=== PATIENT | female | born 1975 | race Caucasian/White ===

== ENCOUNTER 2023-05-10 12:29 | Outpatient (CLI) | payer BC ==
[~2023-05-10] VITALS: Ht 157.5 cm; Wt 102.6 kg
[2023-05-10] MEDS ORDERED: FLUT9.9S NS (12:59)
[2023-05-10] MEDS ORDERED: CETI10CA PO (12:59)
== END 2023-05-10 13:01 | disposition home or self-care (01) ==
LOC: PREOP 12:29
PROVIDERS: ATTEND Surgery
DX: Z01.818 Encounter for other preprocedural examination (principal)

== ENCOUNTER 2023-05-17 11:41 | Day surgery (SDC) | payer BC ==
[~2023-05-17] VITALS: Ht 102 cm; Wt 102.6 kg
[~2023-05-17 11:41] MED LIST: CETI10CA PO; FLUT9.9S NS
[2023-05-17] MEDS ORDERED: LACTATED RINGERS 1,000 ML IV STA (11:58)
[2023-05-17 12:15] VITALS: BP 144/99
--- NOTE | 2023-05-17 14:28 | Progress Note-Pre Operative ---
Pre-Operative Progress Note Date H&P Reviewed: May 17, 2023 Time H&P Reviewed: 14:27 History & Physical: H&P Reviewed, Patient Examed, No changes noted Pre-Operative Diagnosis: screening colonoscopy SANTIAGO PATRICK DO May 17, 2023 14:28
[2023-05-17] MEDS ORDERED: PROPOFOL INJECTION 50 ML IV ONE (15:02)
[2023-05-17 15:20] VITALS: BP 129/78
--- NOTE | 2023-05-17 15:21 | Discharge Inst-Simple/Standard ---
Discharge Inst-Standard Patient Instructions/Follow Up Plan of Care/Instructions/FU: Franck 10 years for repeat colonoscopy unless family history of colon cancer which would be 5 years. Any issues before that be seen at that time. Activity as Tolerated: Yes Discharge Diet: Regular Diet SANTIAGO PATRICK DO May 17, 2023 15:21
--- NOTE | 2023-05-17 15:22 | Progress Note-Post Operative ---
Post-Operative Progess Note Surgeon (s)/Forensic Engineer (s) Surgeon SANTIAGO PATRICK DO Forensic Engineer: na Pre-Operative Diagnosis screening colonoscopy Post-Operative Diagnosis normal colon Procedure & Operative Findings Date of Procedure 05/17/23 Procedure Performed/Findings colonoscopy Anesthesia Type per [facility] Estimated Blood Loss Estimated blood loss (mL): none Specimens/Packing Specimens Removed na SANTIAGO PATRICK DO May 17, 2023 15:21
--- NOTE | 2023-05-17 15:24 | Anesthesia-General Post-Op ---
MAC Patient Condition Mental Status/LOC: Same as Preop Cardiovascular: Satisfactory Nausea/Vomiting: Absent Respiratory: Satisfactory Pain: Controlled Complications: Absent Post Op Complications Complications None Follow Up Care/Instructions Patient Instructions None needed. Anesthesiology Discharge Order Discharge Order Patient is doing well, no complaints, stable vital signs, no apparent adverse anesthesia problems. No complications reported per nursing. SHAYNE CARLOS DO May 17, 2023 15:24
[2023-05-17 15:45] VITALS: BP 129/78
--- NOTE | 2023-05-18 00:38 | OPERATIVE REPORT ---
DATE OF SERVICE: 05/17/2023 PREOPERATIVE DIAGNOSIS: Screening colonoscopy. POSTOPERATIVE DIAGNOSIS: Normal colon. PROCEDURE: Colonoscopy. SURGEON: Santiago Juárez DO ANESTHESIA: Per [ ]. ESTIMATED BLOOD LOSS: None. COMPLICATIONS: None. INDICATIONS: The patient is a 47-year-old female, needing screening colonoscopy. She understands risks and benefits of procedure and wished to proceed. Consent was signed in chart. DESCRIPTION OF PROCEDURE: The patient was taken to endoscopy suite, placed in left lateral recumbent position. Timeout was performed. Digital rectal exam was performed. No palpable polyps, masses or ulcerations. Scope was inserted in the rectum and advanced all the way to the cecum with minimal difficulty. Prep was adequate. Scope was slowly retracted back. No polyps, masses or ulcerations in the cecum, ascending, transverse, descending and sigmoid colon. Once in the rectum, scope was retroflexed noting no other pathology. Scope was returned to its normal position, slowly withdrawn until completely removed. The patient tolerated the procedure well, no complications, taken to recovery room in stable condition. RECOMMENDATIONS: The patient will have repeat colonoscopy in 10 years unless family history of colon cancer, which then will be 5 years. Any issues before that, be seen at that time. Job ID: [id number] DocumentID: [id number] Dictated Date: 05/17/2023 22:35:01 Methods Examiner Date: 05/18/2023 00:35:00 Dictated By: SANTIAGO JUÁREZ DO
== END 2023-05-17 15:45 | disposition home or self-care (01) ==
LOC: ENDO 11:41
PROVIDERS: ATTEND Surgery
DX: Z12.11 Encounter for screening for malignant neoplasm of colon (principal); K40.90 Unilateral inguinal hernia, without obstruction or gangrene, not specified as recurrent; E66.9 Obesity, unspecified; Z87.891 Personal history of nicotine dependence; Z68.41 Body mass index [BMI] 40.0-44.9, adult

== ENCOUNTER 2023-06-18 05:27 | Outpatient (CLI) | payer BC ==
[~2023-06-18] VITALS: Ht 157.5 cm; Wt 100.5 kg
[2023-06-18 08:51] VITALS: BP 138/86
[2023-06-18] MEDS ORDERED: MULT400T5 PO (12:54)
== END 2023-06-18 13:36 | disposition home or self-care (01) ==
LOC: PREOP 05:27
PROVIDERS: ATTEND Obstetrics & Gynecology
DX: Z01.818 Encounter for other preprocedural examination (principal)

== ENCOUNTER 2023-06-25 06:57 | Inpatient (IN) | payer BC ==
[~2023-06-25] VITALS: Ht 157.5 cm; Wt 100.5 kg
[2023-06-25] VITALS (24 sets, daily range): BP systolic 106–177; BP diastolic 73–93
[~2023-06-25 06:57] MED LIST changes: +MULT400T5 PO
[2023-06-25] MEDS ORDERED: fentaNYL INJECTION 100 MCG/2 ML VIAL ONE (07:03)
[2023-06-25] MEDS ORDERED: MIDAZOLAM INJ 2 MG/2 ML VIAL ONE (07:03)
--- NOTE | 2023-06-25 07:11 | Progress Note-Pre Operative ---
Pre-Operative Progress Note Date H&P Reviewed: Jun 25, 2023 Time H&P Reviewed: 07:05 History & Physical: H&P Reviewed, No changes noted Pre-Operative Diagnosis: AUB Uterine Fibroids Plan for TLH possible BSO MAYCO GONZALEZ DO Jun 25, 2023 07:11
[2023-06-25] MEDS ORDERED: ceFAZolin INJECTION 1,000 MG in NS (IVPB) 50 ML 50 ML IV ONE (07:15)
[2023-06-25] MEDS: LACTATED RINGERS 1,000 ML IV PRN ×5 (07:31→12:20)
[2023-06-25] MEDS ORDERED: BUPIVACAINE 0.25% 30 ML VIAL ONE (07:52)
[2023-06-25 07:56] LABS: BASOPHILS % (AUTO) 1 % (0-10); EOSINOPHILS # (AUTO) 0.3 10^3/uL (0.0-0.3); EOSINOPHILS % (AUTO) 5 % (0-10); HEMATOCRIT 37 % (35-52); HEMOGLOBIN 11.3 g/dL (11.5-16.0); LYMPHOCYTES # (AUTO) 1.2 10^3/uL (1.0-4.0); LYMPHOCYTES % (AUTO) 25 % (12-44); MEAN CORPUSCULAR HEMOGLOBIN 24 pg (25-34); MEAN CORPUSCULAR HGB CONC 31 g/dL (32-36); MEAN CORPUSCULAR VOLUME 79 fL (80-99); MEAN PLATELET VOLUME 10.4 fL (9.0-12.2); MONOCYTES # (AUTO) 0.4 10^3/uL (0.0-1.0); MONOCYTES % (AUTO) 8 % (0-12); NEUTROPHILS # (AUTO) 2.8 10^3/uL (1.8-7.8); NEUTROPHILS % (AUTO) 61 % (42-75); PLATELET COUNT 309 10^3/uL (130-400); WHITE BLOOD COUNT 4.6 10^3/uL (4.3-11.0)
[2023-06-25] MEDS ORDERED: ONDANSETRON 4 MG/2 ML (SDV) Z0FRAN ONE (09:04)
[2023-06-25] MEDS ORDERED: SEVOFLURANE (ULTANE) 15 ML INHAL SOLN ONE ×2 (09:04→11:52)
[2023-06-25] MEDS ORDERED: LIDOCAINE PF 2% 5 ML VIAL ONE (09:04)
[2023-06-25] MEDS ORDERED: proPOfol 200 MG/20 ML (DIPRIVAN) VIAL IV ONE (09:04)
[2023-06-25] MEDS ORDERED: dexAMETHasone INJ 10 MG/ML 1 ML VIAL ONE (09:04)
[2023-06-25] MEDS ORDERED: ROCURONIUM 50 MG/5 ML (ZEMURON) VIAL IV ONE ×2 (09:04→10:01)
[2023-06-25] MEDS ORDERED: BUPIVACAINE 0.25% 30 ML VIAL INJ ONE (09:09)
[2023-06-25] MEDS ORDERED: LIDOCAINE 1% w/EPI 1:100,000 20 ML VIAL ONE (09:41)
[2023-06-25] MEDS ORDERED: LIDOCAINE 1% w/EPI 1:100,000 20 ML VIAL INJ ONE (09:49)
[2023-06-25] MEDS ORDERED: NS IV 500 ML 500 ML IV SCH (11:30)
[2023-06-25 11:47] LABS: HEMOGLOBIN 8.4 g/dL (11.5-16.0)
[2023-06-25] MEDS ORDERED: SUGAMMADEX 500 MG/5 ML VIAL (BRIDION) IV ONE (11:47)
[2023-06-25] MEDS ORDERED: HYDROmorphone INJECTION 2 MG/ML VIAL ONE (11:48)
--- NOTE | 2023-06-25 12:13 | Operative Report ---
Operative Report Date of Procedure/Surgery Jun 25, 2023 Surgeon (s) EMELINA NICK DO [employer] Attendant (s): Hannah Navarro Post-Operative Diagnosis AUB fibroids uterine enlargement Procedure Performed Total laparoscopic hysterectomy with bilateral salpingectomy and right oophorectomy converted to total abdominal hysterectomy with bilateral salpingectomy and right oophorectomy. Description of Procedure Anesthesia Type: General Estimated blood loss (mL): 1200 Specimen(s) collected/removed Uterus cervix fallopian tubes right ovary and fibroid Description of the Procedure Informed consent was obtained and signed and patient was taken to the OR suite placed under general intratracheal anesthesia placed in the dorsal lithotomy position prepped and draped in usual sterile fashion. A timeout was performed. A Regalado catheter was inserted into the urinary bladder. Pelvic exam under anesthesia revealed an enlarged 14-15-week size uterus no adnexal masses. A weighted speculum was placed into the posterior vaginal vault and the single- tooth tenaculum was used to grasp the anterior lip of the cervix. Uterus sounded to approximately 14 cm. A Tayler uterine manipulator was then inserted and the single-tooth and weighted speculum were then removed. Attention was then paid to the abdomen where the supraumbilical area was grasped with towel clips injected with quarter percent plain Marcaine a small incision was made and using direct visualization entered into the abdominal cavity. The abdomen was insufflated using carbon oxide gas and the patient was placed in steep Trendelenburg position. The pelvic contents were identified. Uterus was noted to be enlarged and bulky with multiple fibroids. Both ovaries were visualized the fallopian tubes were visualized both had Filshie clips adhered to them. Under direct visualization 3 lateral ports were placed one in the left lower quadrant 1 in the left upper quadrant and 1 in the right upper quadrant. 5 mm trocars were placed in the left lower quadrant in the right upper quadrant and a Veress trocar was inserted into the left upper quadrant incision. Using a grasper and LigaSure and inspected the pelvic cavity the posterior cul-de-sac was noted to be free and clear both ureters were seen peristalsing and were low and away from the area where we were working. The right ovary was noted to be adhered to the uterus and pulled up the left ovary was closer to the pelvic sidewall and further away. Both the round ligaments were identified. The anterior side of the uterus was visualized and was able to see the bladder. Using the LigaSure and grasper and starting on the right side the infundibulopelvic ligament on the right side was cauterized and incised downward across the round ligament the round ligament was cauterized and incised and the anterior posterior leaves of the broad ligament were . The posterior leaf of the broad ligament on the right side was cauterized and incised to just above the uterine artery. The anterior leaf the broad ligament was cauterized and incised across to the anterior side. Then attention was paid to the left side the fallopian tube was cauterized and incised along the mesosalpinx and the utero-ovarian ligament was cauterized and incised using the LigaSure. The round ligament was then cauterized and incised and the anterior posterior leaves of the broad ligament were the posterior leaf of the broad ligament was cauterized and incised to just above the uterine artery. The anterior leaf of the broad ligament was cauterized and incised to the Vesco uterine fascia the vesicouterine fascia was then cauterized and incised to crossed. Uterus was difficult to manage with the Tayler uterine manipulator because of the heaviness and the bulkiness of the uterus. Once I got to this point we attempted to get the bladder flap reflected off of the cervix but was unable to do so. The uterine artery on the left side was cauterized and incised using the LigaSure. In similar fashion I attempted to get the uterine artery on the right side but was unable to safely do so. We then moved to the vagina to attempt a vaginal access to the uterus to help remove it. We removed the Tayler manipulator and placed a weighted speculum's to single-tooth tenaculum was used to grasp the anterior posterior lips of the cervix. The cervical vaginal mucosa was then injected with 1% lidocaine with epi for a total of 10 cc. Incisions were made circumferentially around the cervix and the cervical vaginal mucosa was reflected off of the cervix. We then ran into difficulty getting into the peritoneum anteriorly so then we attempted posteriorly it did feel like we were in posteriorly so the gooseneck weighted speculum was then placed over the posterior cuff. The uterosacral ligaments were then clamped with Ashkan clamps incised and then ligated using 0 Vicryl in an interrupted stitch first on the right and then on the left. We then attempted to move up further but still had difficulty getting in anteriorly. We started having increased Blood loss and still felt like the uterus was not moving downward and could not get into the anterior side. It was then decided that we would abandon laparoscopic hysterectomy and do an abdominal hysterectomy. We then went back to the abdomen and made a Pfannenstiel skin incision carried down to the level of the fascia the fascia was nicked and incised bilaterally reflected off the rectus abdominis muscle both superiorly and inferiorly rectus abdominis muscle was then the midline and the peritoneum was entered into bluntly. The gas was turned off and all of our trocars were removed we then attempted placing an Rosendo retractor however we just did not get a good enough visualization so we removed that and placed an Gracia-Katarina self- retaining retractor. We placed the abdominal blade and placed 2-3 wet laps and and tagged them to the surgical drapes. We then placed the bladder blade and were able to see the sidewalls. At this point the uterus was so bulky was still very difficult to see so I removed one of the fibroids to see if that would give us more visualization but it did not. So I called my partner, Harvey ROSEN DO, for assistance. We were able to look and see and we were able to see that we were in the vaginal cuff on the patient's left side but still attached to the peritoneum anteriorly which we released by clamping across the peritoneum incising and then ligating with 0 Vicryl. We were able to clamp along the right sidewall and free up the right side and removed the uterus and the cervix the fallopian tubes and the right ovary. Once this was done we looked for the vaginal cuff which we were able to find and we grasped with Allis clamps and Ganesh clamps. We then reapproximated it with 0 Vicryl in several interrupted fozozo-ub-ibuff stitches. Once we were able to see that the cuff was completely closed the bladder was inspected and was noted to be intact and both ureters were seen and palpated and were noted to be intact and away from where we were working. We irrigated the area copiously and saw no active bleeding at that time. The vaginal cuff was then covered with Floseal. The 3 wet laps that were placed in were were then removed and detached from the surgical draping. The [place] the abdominal blade and bladder blade were then removed and the O'[place] Marie- O'Miller self-retaining tractor was removed. The area was inspected and there was no active bleeding. The rectus abdominis muscle was reapproximated using 3- 0 Vicryl in running fashion. The fascia was reapproximated using 1-0 Vicryl in running fashion the subcutaneous layer was reapproximated using 2-0 Vicryl in running fashion and the skin was reapproximate using 3-0 Monocryl in subcuticular fashion and my right upper quadrant and left upper quadrant ports were reapproximated using 3-0 Monocryl. All of the incision sites were sealed using Dermabond. All my counts were correct x3. EBL was 1200. Fluids were 4 L. Urine output was 300. The patient was taken to recovery room in stable condition. Findings of the Procedure Uterine enlargement with multiple fibroids largest measuring about 8 cm. Allergies and Home Medications Allergies Coded Allergies: Sulfa (Sulfonamide Antibiotics) (Unverified Allergy, Unknown, 06/18/23) Patient Home Medication List Home Medication List Reviewed: Yes Cetirizine HCl (Zyrtec) 10 Mg Capsule, 10 MG PO DAILY, (Reported) Entered as Reported by: MARTIN PANDEY on 05/10/231258 Last Action: Reviewed Docusate Sodium (Docusate Sodium) 100 Mg Capsule, 100 MG PO BID Prescribed by: Emelina Nick on 06/27/23903 Last Action: Reviewed Hydrocodone/Acetaminophen (Hydrocodone-Acetamin 5-325 mg) 5 Mg-325 Mg Tablet, 0 EA PO Q4H PRN for PAIN-MODERATE (5-7) Prescribed by: Emelina Nick on 06/27/23904 Last Action: Reviewed Ibuprofen (Ibu) 600 Mg Tablet, 600 MG PO Q6H Prescribed by: Emelina Nick on 06/27/23903 Last Action: Reviewed Multivitamin with Folic Acid (One Daily Multivitamin Tablet) 400 Mcg Tablet, 400 MCG PO DAILY, (Reported) Entered as Reported by: Bianka Yanez on 06/18/231253 Last Action: Reviewed EMELINA NICK DO Jun 25, 2023 12:13
[2023-06-25] MEDS ORDERED: ONDANSETRON 4 MG/2 ML (SDV) Z0FRAN IVP PRN ×2 (12:15→12:30)
[2023-06-25] MEDS ORDERED: NALOXONE 0.4 MG/ML 1 ML VIAL IV PRN (12:15)
[2023-06-25] MEDS ORDERED: HYDROcodone/ACETAMINOPHEN 5 MG/325 MG TABLET PO PRN (12:15)
[2023-06-25] MEDS ORDERED: morphine INJ 4 MG/ML 1 ML (VIAL/SYRINGE) IV PRN (12:15)
[2023-06-25] MEDS ORDERED: HYDROmorphone INJECTION 2 MG/ML VIAL IV ONE (12:30)
[2023-06-25] MEDS ORDERED: fentaNYL INJECTION 100 MCG/2 ML VIAL IVP ONE (12:30)
[2023-06-25] MEDS ORDERED: IBUPROFEN 600 MG TABLET PO SCH (14:00)
[2023-06-25] MEDS: HYDROcodone/ACETAMINOPHEN 5 MG/325 MG TABLET PO PRN ×2 (17:15→21:01)
[2023-06-25] MEDS: D5 LR 1,000 ML IV SOLN 1,000 ML IV SCH (17:59)
--- NOTE | 2023-06-25 18:05 | Anesthesia-General Post-Op ---
General Patient Condition Mental Status/LOC: Same as Preop Cardiovascular: Satisfactory Nausea/Vomiting: Absent Respiratory: Satisfactory Pain: Controlled Complications: Absent Post Op Complications Complications None Follow Up Care/Instructions Patient Instructions None needed. Anesthesia/Patient Condition Patient Condition Patient is doing well, no complaints, stable vital signs, no apparent adverse anesthesia problems. No complications reported per nursing. JEFRY MANRQIUE CRNA Jun 25, 2023 18:05
[2023-06-25] MEDS: IBUPROFEN 600 MG TABLET PO SCH (18:25)
[2023-06-25 22:08] LABS: HEMOGLOBIN 9.9 g/dL (11.5-16.0)
[2023-06-26 00:01] VITALS: BP 113/58
[2023-06-26] MEDS: IBUPROFEN 600 MG TABLET PO SCH ×4 (00:01→18:13)
[2023-06-26] MEDS: HYDROcodone/ACETAMINOPHEN 5 MG/325 MG TABLET PO PRN ×5 (00:57→21:19)
[2023-06-26] MEDS: D5 LR 1,000 ML IV SOLN 1,000 ML IV SCH (01:00)
[2023-06-26 05:21] VITALS: BP 119/55
[2023-06-26 05:33] LABS: BASOPHILS % (AUTO) 0 % (0-10); EOSINOPHILS % (AUTO) 0 % (0-10); HEMATOCRIT 29 % (35-52); LYMPHOCYTES # (AUTO) 0.9 10^3/uL (1.0-4.0); LYMPHOCYTES % (AUTO) 11 % (12-44); MEAN CORPUSCULAR HEMOGLOBIN 25 pg (25-34); MEAN CORPUSCULAR HGB CONC 31 g/dL (32-36); MEAN CORPUSCULAR VOLUME 82 fL (80-99); MEAN PLATELET VOLUME 10.6 fL (9.0-12.2); MONOCYTES # (AUTO) 0.9 10^3/uL (0.0-1.0); MONOCYTES % (AUTO) 10 % (0-12); NEUTROPHILS # (AUTO) 6.8 10^3/uL (1.8-7.8); NEUTROPHILS % (AUTO) 79 % (42-75); PLATELET COUNT 196 10^3/uL (130-400); WHITE BLOOD COUNT 8.6 10^3/uL (4.3-11.0)
--- NOTE | 2023-06-26 07:39 | Anesthesia-General Post-Op ---
General Patient Condition Mental Status/LOC: Same as Preop Cardiovascular: Satisfactory Nausea/Vomiting: Absent Respiratory: Satisfactory Pain: Controlled Complications: Absent Post Op Complications Complications None Follow Up Care/Instructions Patient Instructions None needed. Anesthesia/Patient Condition Patient Condition Patient is doing well, no complaints, stable vital signs, no apparent adverse anesthesia problems. No complications reported per nursing. NAYAN SNYDER CRNA Jun 26, 2023 07:39
[2023-06-26 08:26] VITALS: BP 131/63
--- NOTE | 2023-06-26 08:27 | Progress Note ---
Standard Progress Note Progress Notes/Assess & Plan Date Seen by a Provider: Jun 26, 2023 Time Seen by a Provider: 08:15 Progress/Assessment & Plan Patient is postop day #1 status post a laparoscopic hysterectomy converted to abdominal hysterectomy with bilateral salpingectomy and right nephrectomy. She is doing well has no concerns. Patient received 2 units packed red blood cells after 1200 cc loss intraoperatively. Initial hemoglobin in recovery room was 8.4 this morning it is 9.0. Patient states that she is feeling better. Patient also states that she is hungry. VSS AF Heart regular rate and rhythm Lungs clear to auscultation bilaterally Abdomen soft mildly distended bowel sounds present Incision sites clean dry intact no signs or symptoms of infection noted Minimal vaginal bleeding Extremities intact x4 no cyanosis clubbing erythema or edema. SCDs on. Assessment/Plan Status post LIVIA BS, R0 postop day #1 Acute blood loss anemia Continue current management May shower Increase ambulation Advance diet to surgical soft Continue to monitor MAYCO GONZALEZ DO Jun 26, 2023 08:27
[2023-06-26] MEDS: DOCUSATE SODIUM 100 MG CAPSULE PO SCH ×2 (08:29→21:19)
[2023-06-26 12:12] VITALS: BP 108/61
[2023-06-26 16:21] VITALS: BP 128/66
[2023-06-26 21:20] VITALS: BP 120/76
[2023-06-27] MEDS: IBUPROFEN 600 MG TABLET PO SCH ×2 (00:07→05:48)
[2023-06-27 01:18] VITALS: BP 105/59
[2023-06-27] MEDS: HYDROcodone/ACETAMINOPHEN 5 MG/325 MG TABLET PO PRN ×3 (01:19→10:35)
[2023-06-27 05:48] VITALS: BP 124/76
[2023-06-27 08:00] VITALS: BP 126/72
[2023-06-27] MEDS: DOCUSATE SODIUM 100 MG CAPSULE PO SCH (08:23)
--- NOTE | 2023-06-27 08:58 | Progress Note ---
Standard Progress Note Progress Notes/Assess & Plan Date Seen by a Provider: Jun 27, 2023 Time Seen by a Provider: 08:45 Progress/Assessment & Plan Patient is postop day #2 status post a laparoscopic hysterectomy converted to abdominal hysterectomy with bilateral salpingectomy and right nephrectomy. She is doing well has no concerns. Pt would like to go home VSS AF Heart regular rate and rhythm Lungs clear to auscultation bilaterally Abdomen soft mildly distended bowel sounds present Incision sites clean dry intact no signs or symptoms of infection noted Minimal vaginal bleeding Extremities intact x4 no cyanosis clubbing erythema or edema. SCDs on. Assessment/Plan Status post LIVIA BS, R0 postop day #2 Acute blood loss anemia Stable currently Continue current management DC to home MAYCO GONZALEZ DO Jun 27, 2023 08:58
[2023-06-27] MEDS ORDERED: ACHD5005 PO (09:04)
[2023-06-27] MEDS ORDERED: IBUP-844 PO (09:04)
[2023-06-27] MEDS ORDERED: DOCU100C37 PO (09:04)
--- NOTE | 2023-06-27 09:08 | Discharge Summary ---
Discharge Summary Hospital Course Problems Reviewed?: Yes Hospital Course Date of Admission: Jun 25, 2023 at 18:56 Admission Diagnosis : Family Physician/Provider: Hazel Lugo Aprn Date of Discharge: 06/27/23 Discharge Diagnosis: s/p LIVIA BS RO Hospital Course: Pt was admitted for TLH possible BSO possible open Due to the number of large fibroids and the size of the uterus, we converted to a LIVIA BS RO She did very well postoperatively. She had a 1200 EBL and received 2units PRBC. She was ambulating on day #1 and was doing well and showered. ON postop Day #2 she was discharged to home with pain medications and instructions. Labs and Pending Lab Test: Microbiology 06/25/23 MRSA Screen - Final, Complete MRSA not isolated Home Meds Active Docusate Sodium 100 Mg Capsule 100 Mg PO BID take one tablet twice a day Hydrocodone-Acetamin 5-325 mg (Hydrocodone/Acetaminophen) 5 Mg-325 Mg Tablet 0 Ea PO Q4H PRN Take 1 or 2 tablets every 4 hours as needed for pain Ibu (Ibuprofen) 600 Mg Tablet 600 Mg PO Q6H take one tablet every 6hrs as needed for pain Reported One Daily Multivitamin Tablet (Multivitamin with Folic Acid) 400 Mcg Tablet 400 Mcg PO DAILY Zyrtec (Cetirizine HCl) 10 Mg Capsule 10 Mg PO DAILY Activity: Activity as Tolerated Driving Instructions: No Driving for 1 Week NO SMOKING: NO SMOKING Nothing Inside Vagina: No Douching, No [place], No Tampons Discharge Diet: No Restrictions Symptoms to Report to : Swelling Increased, Bleeding Excessive, Pain Increased, Fever Over 101 Degrees F, Vaginal Bleeding Increase, Vaginal Discharge Foul For Any Problems or Questions: Contact Your Physician Infection Signs and Symptoms: Increased Redness, Foul Odor of Wound, Increased Drainage, Skin Itchy or Has a Rash, Increased Swelling, Temperature Above 101 F Operative Area Clean and Dry: Keep Incision Clean/Dry Stitches/Le/Dermabond: Dermabond Discharge Physical Examination Allergies: Coded Allergies: Sulfa (Sulfonamide Antibiotics) (Unverified Allergy, Unknown, 06/18/23) Vitals & I&Os Vital Signs Date Time Temp Pulse Resp B/P (MAP) Pulse Ox O2 Delivery O2 Flow Rate FiO2 06/27/23 08:00 36.3 77 18 126/72 (90) 96 Room Air 06/25/23 20:00 1.00 General Appearance: No Apparent Distress, WD/WN HEENT: PERRL/EOMI Respiratory: Chest Non Tender, Lungs Clear, Normal Breath Sounds, No Accessory Muscle Use, No Respiratory Distress Cardiovascular: Regular Rate, Rhythm, No Edema, No Gallop Gastrointestinal: Normal Bowel Sounds, No Organomegaly, No Pulsatile Mass, Non Tender, Soft Extremity: Normal Inspection, No Pedal Edema Skin: Normal Color, Warm/Dry, Other (incision sites clean dry and intact) Neurologic/Psychiatric: Alert, Oriented x3, No Motor/Sensory Deficits, Normal Mood/Affect, general labor II-XII Norm as Tested Discharge Summary Date of Admission Jun 25, 2023 at 18:56 Date of Discharge Discharge Date: Jun 27, 2023 Discharge Time: 08:45 Admission Diagnosis s/p LIVIALandry Piedra RO Supervisory-Addendum Brief Verification & Attestation Participated in pt care: history, MDM, physical Personally performed: exam, history, MDM, supervision of care Care discussed with: Medical Student Procedures: n/a Results interpretation: Verified all documentation I saw and examined this pt myself MAYCO GONZALEZ DO Jun 27, 2023 09:08
[2023-06-27 10:45] VITALS: BP 126/72
== END 2023-06-27 10:45 | disposition home or self-care (01) | DRG 742 ==
LOC: SDC 06:57 → EDSTATUS 07:30 → WS 13:25 → SDC 13:26 → WS 18:56
PROVIDERS: ADMIT Obstetrics & Gynecology; ATTEND Obstetrics & Gynecology
PROC: 0UT70ZZ Resection of Bilateral Fallopian Tubes, Open Approach (ICD-10-PCS; 2023-06-25)
PROC: 0UT00ZZ Resection of Right Ovary, Open Approach (ICD-10-PCS; 2023-06-25)
PROC: 0UJD4ZZ Inspection of Uterus and Cervix, Percutaneous Endoscopic Approach (ICD-10-PCS; 2023-06-25)
PROC: 0UT90ZZ Resection of Uterus, Open Approach (ICD-10-PCS; principal; 2023-06-25 08:30)
DX: D25.9 Leiomyoma of uterus, unspecified (principal); D62 Acute posthemorrhagic anemia; Z68.41 Body mass index [BMI] 40.0-44.9, adult; K40.90 Unilateral inguinal hernia, without obstruction or gangrene, not specified as recurrent; N92.0 Excessive and frequent menstruation with regular cycle; N85.2 Hypertrophy of uterus; K21.9 Gastro-esophageal reflux disease without esophagitis; I10 Essential (primary) hypertension; E66.01 Morbid (severe) obesity due to excess calories; Z53.31 Laparoscopic surgical procedure converted to open procedure; Z87.891 Personal history of nicotine dependence; Z88.2 Allergy status to sulfonamides; Z79.899 Other long term (current) drug therapy; Z79.891 Long term (current) use of opiate analgesic; Z79.1 Long term (current) use of non-steroidal anti-inflammatories (NSAID)
CPT/HCPCS: 36415; 84703; 85014; 85018; 85025; 86850; 86900; 86901; 86920; 87081